=== PATIENT | male | born 1970 | race Hispanic/Latino ===

== ENCOUNTER 2017-11-09 17:33 | Emergency (ER) | payer BC ==
--- NOTE | 2017-11-09 18:44 | RAD ---
PA AND LATERAL CHEST: Date: 11/09/17 INDICATION: Left chest wall pain after coughing. FINDINGS: There are low lung volumes. There is patchy opacity within the left lower lobe that is predominantly linear and morphologic in appearance and suspicious for atelectasis. Right lung is clear. Cardiomedia stinal silhouette is within normal limits. No acute osseous abnormality is evident. IMPRESSION: Low lung volumes left lower lobe atelectasis. No pneumothorax. POS: [facility]
--- NOTE | 2017-11-09 18:45 | RAD ---
3 VIEWS LEFT RIBS: Date: 11/09/17 INDICATION: Left chest wall pain after coughing. FINDINGS/IMPRESSION: No displaced left-sided rib fracture is evident. Left lung is clear. POS: [facility]
[2017-11-09 18:50] LABS: #Basophils 0.1 thou/uL (0.0-0.2); #Eosinphils 0.1 thou/uL (0.0-0.7); #Monocytes 0.7 thou/uL (0.11-0.59); #Neutrophils 6.7 thou/uL (1.40-6.50); %Basophils 1.2 % (0.0-1.0); %Eosinophils 1.2 % (0.0-10.0); %Lymphocytes 28.2 % (21.0-51.0); %Monocytes 6.6 % (0.0-10.0); %Neutrophils 62.9 % (42.0-75.0); Hemoglobin 15.4 g/dL (14.0-18.0); Mean Corpuscular HGB CONC 36.2 g/dL (32.0-36.0); Mean Corpuscular Hemoglobin 33.3 pg (27.0-31.0); Mean Corpuscular Volume 92.1 fl (80.0-94.0); Mean Platelet Volume 8.7 fL (7.4-10.4); Platelet Count 200 thou/uL (130-400); RBC Distribution Width 11.1 % (11.5-14.5); Red Blood Cell (RBC) Count 4.63 mill/uL (4.70-6.10); White Blood Cell (WBC) Count 10.7 thou/uL (4.8-10.8)
[2017-11-09 19:08] LABS: ALT (SGPT) 23 U/L (8-55); AST (SGOT) 16 U/L (5-34); Albumin 4.2 g/dL (3.5-5.0); Alkaline Phosphatase 101 U/L (40-150); Anion Gap 12 mmol/L (10-20); BUN (Urea Nitrogen) 13 mg/dL (8.9-20.6); Bilirubin, Total 0.7 mg/dL (0.2-1.2); Calc. Creatinine Clearance 0 mL/min (70-130); Calcium 9.3 mg/dL (7.8-10.44); Carbon Dioxide 25 mmol/L (22-29); Chloride 110 mmol/L (98-107); Estimated GFR-MDRD Greater than 90; Globulin 2.4 g/dL (2.4-3.5); Glucose 114 mg/dL (70-105); Potassium 3.4 mmol/L (3.5-5.1); Protein, Total 6.6 g/dL (6.0-8.3); Sodium 144 mmol/L (136-145)
[2017-11-09 19:09] LABS: CKMB 0.6 ng/mL (0-6.6); Troponin I Less than 0.010 ng/mL (< 0.028)
--- NOTE | 2017-11-09 19:30 | CT ---
CTA THORAX UTILIZING IV CONTRAST AND 3D REFORMATTED IMAGING: Date: 11/09/17 INDICATION: Left lateral chest wall pain. FINDINGS: No central or segmental pulmonary embolus is evident. There is subsegmental volume loss within lingul a and left lower lobe. There is mild scattered paraseptal emphysema. No pathologically enlarged lymph nodes are evident. There are coronary artery calcifications. There is fatty infiltration of the live r. There is scattered degenerative and osteoarthritic change. There is a small amount of debris seen within the distal esophagus. IMPRESSION: 1. No central or segmental pulmonary embolus. 2. Mild subsegmental atelectasis in the left lower lobe and lingula. 3. Mild amount of debris within the distal esophagus may be seen with reflux or dysmotility. 4. Fatty liver. 5. Mild paraseptal emphysema. POS: [facility]
[2017-11-09 19:40] LABS: Bilirubin Negative (Negative); Blood, Urine Negative (Negative); Clarity Clear (Clear); Glucose, Urine (Dipstick) Negative (Negative); Leukocyte Negative (Negative); Nitrite Negative (Negative); Protein, Urine (Dipstick) Negative (Neg-Trace); Urobilinogen 0.2 mg/dL (0.2-1.0)
[2017-11-09] MEDS ORDERED: Ketorolac Tromethamine 30 MG/ML VIAL ONE (19:55)
== END 2017-11-09 20:07 | disposition home or self-care (01) ==
LOC: SCSER 17:33
DX: S20.212A Contusion of left front wall of thorax, initial encounter (principal); I25.2 Old myocardial infarction; E78.5 Hyperlipidemia, unspecified; I10 Essential (primary) hypertension
CPT/HCPCS: 71046; 71275; 80053; 81003; 82553; 84484; 85025; 93005; 96374; J1885

== ENCOUNTER 2017-11-11 10:25 | Emergency (ER) | payer BC ==
--- NOTE | 2017-11-11 12:46 | RAD ---
TWO VIEWS CHEST: History: Pain. Comparison: 11-09-17 FINDINGS: Two views chest. Normal cardiac silhouette. Pulmonary vessels and hilum are normal. Costophrenic angles are clear. No consolidation or mass. No pneumothorax or osseous abnormality. IMPRESSION: No acute cardiopulmonary process. POS: [facility]
[2017-11-11] MEDS ORDERED: Morphine 10 MG/ML VIAL ONE (12:57)
[2017-11-11 13:00] LABS: Bilirubin Negative (Negative); Blood, Urine Small (Negative); Clarity CLEAR (Clear); Glucose, Urine (Dipstick) Negative (Negative); Leukocyte Negative (Negative); Nitrite Negative (Negative); Protein, Urine (Dipstick) Negative (Neg-Trace); Specific Gravity, Urine 1.025 (1.002-1.036); pH, Urine 6.5 (5.0-9.0)
[2017-11-11 13:01] LABS: Bacteria/HPF None Seen HPF (None Seen); Hyaline Casts/LPF 0-3 HYALINE CAST LPF (0-3 Hyaline); Pathc Cast-AUWi Flag 0.14 (0-2.49); Squamous Epithelial 0-3 HPF (0-3); WBC/HPF 0-3 HPF (0-3)
[2017-11-11 13:16] LABS: Amphetamine Not Detected (NotDetected); Barbiturates Screen Not Detected (NotDetected); Benzodiazepine Screen Not Detected (NotDetected); Cocaine Metabolite Screen Not Detected (NotDetected); Medtox Control Line Valid? VALID (VALID); Medtox Reader # READER 4; Methadone Not Detected (NotDetected); Methamphetamine Not Detected (NotDetected); Opiate Screen Not Detected (NotDetected); Oxycodone Screen Not Detected (NotDetected); Phencyclidine (PCP) Not Detected (NotDetected); THC/Cannabinoid Screen Not Detected (NotDetected); Tricyclic Screen Not Detected (NotDetected)
--- NOTE | 2017-11-11 14:32 | CT ---
CT OF THE ABDOMEN AND PELVIS WITHOUT CONTRAST: Date: 11/11/17 INDICATION: Left-sided flank pain. FINDINGS: No renal or ureteral calculus is evident. No hydronephrosis is demonstrated. The appendix is surgical ly absent. There is fatty infiltration of the liver. The spleen, pancreas, and right adrenal gland are normal ap pearing. There is a 1.0 cm fat density lesion involving the adrenal gland suspicious for either myelo lipoma or lipoma. There are mild vascular calcifications noted involving the abdominal and pelvic vasculature. There ar e prostatic calcifications. There are fat-containing inguinal hernias. No definite acute osseous abnormality is evident. IMPRESSION: 1. No renal or ureteral calculus. 2. Fatty liver. 3. Left adrenal lipoma/myelolipoma. 4. Prostatic calcifications. 5. Fat-containing inguinal hernias. POS: [facility]
== END 2017-11-11 14:34 | disposition home or self-care (01) ==
LOC: ERS 10:25
DX: M54.6 Pain in thoracic spine (principal); R31.9 Hematuria, unspecified; I10 Essential (primary) hypertension; I25.2 Old myocardial infarction; E78.5 Hyperlipidemia, unspecified; Z79.82 Long term (current) use of aspirin; Z79.899 Other long term (current) drug therapy
CPT/HCPCS: 71046; 74176; 80306; 81003; 81015; 96372; J2270

== ENCOUNTER 2018-08-25 18:49 | Emergency (ER) | payer BC | END 2018-08-25 20:30 | disposition home or self-care (01) | LOC: SCSER 18:49 | DX: K60.2 Anal fissure, unspecified (principal); K64.9 Unspecified hemorrhoids; E78.5 Hyperlipidemia, unspecified; I10 Essential (primary) hypertension; I25.10 Atherosclerotic heart disease of native coronary artery without angina pectoris; I25.2 Old myocardial infarction | CPT/HCPCS: 99283 ==

== ENCOUNTER 2020-01-18 12:43 | Emergency (ER) | payer BC, OTHER ==
[2020-01-19 14:23] LABS: SARS-CoV-2 MS2 Positive; SARS-CoV-2 N Gene Positive; SARS-CoV-2 S Gene Positive; SARS-CoV-2 by NAA DETECTED (NotDetected); SARS-CoV-2 orf1ab Positive
== END 2020-01-18 13:17 | disposition home or self-care (01) ==
LOC: ERS 12:43
DX: U07.1 COVID-19 (principal); I25.10 Atherosclerotic heart disease of native coronary artery without angina pectoris; I25.2 Old myocardial infarction; I10 Essential (primary) hypertension; E78.5 Hyperlipidemia, unspecified; E78.00 Pure hypercholesterolemia, unspecified
CPT/HCPCS: 87635; 99283; U0003